=== PATIENT | male | born 1995 | race Caucasian/White ===

== ENCOUNTER 2016-09-06 13:49 | Emergency (ER) | payer BC ==
[~2016-09-06] VITALS: Ht 185.4 cm; Wt 68.0 kg
[2016-09-06 14:06] VITALS: BP 128/86
[2016-09-06] MEDS ORDERED: ACETAMINOPHEN ES 500 MG TABLET ONE (14:29)
[2016-09-06] MEDS ORDERED: ACETAMINOPHEN ES 500 MG TABLET PO ONE (14:30)
--- NOTE | 2016-09-06 14:32 | NUR ---
RADIOLOGY AT BEDSIDE FOR L SHOULDER XRAY.
--- NOTE | 2016-09-06 15:11 | NUR ---
LT SHOULDER DISLOCATION MANUALLY REDUCED BY DR MCKENNA. SHOULDER SLING PROVIDED. D/C IN STABLE CONDITION.
== END 2016-09-06 15:14 | disposition home or self-care (01) ==
LOC: ER 13:51
DX: S43.005A Unspecified dislocation of left shoulder joint, initial encounter (principal); X58.XXXA Exposure to other specified factors, initial encounter; Y93.67 Activity, basketball; Y92.89 Other specified places as the place of occurrence of the external cause; Y99.8 Other external cause status
CPT/HCPCS: 23650; 73030; 99284; A4606; Z7610